=== PATIENT | male | born 1960 | race Caucasian/White ===

== ENCOUNTER 2023-11-27 22:43 | Emergency (ER) | payer BC ==
[2023-11-27 22:50] VITALS: BP 117/84; PULSE 76; RESP 16; TEMP 98.2; BMI 24.3
[2023-11-27 23:20] LABS: HEMATOCRIT 42.7 % (35.4-49); HEMOGLOBIN 14.3 G/dL (11.7-16.9); MCH 30.7 pg (25.7-33.7); MCHC 33.5 g/dl (32.0-35.9); MEAN CELL VOLUME 91.8 fl (80-96); MEAN PLT VOLUME 7.8 fl (7.5-11.1); PLATELET COUNT 267.1 10^3/uL (134-434); RBC 4.65 10^6/uL (4.00-5.60); WHITE BLOOD COUNT 10.1 10^3/uL (4.0-10.8)
[2023-11-28] MEDS ORDERED: KETOROLAC TROMETHAMINE 30 MG/1 ML VIAL ONE (00:19)
[2023-11-28] MEDS: KETOROLAC TROMETHAMINE 30 MG/1 ML VIAL IM ONE (00:19)
== END 2023-11-28 00:23 | disposition home or self-care (01) ==
LOC: FER 22:43
PROC: 3E0333Z Introduction of Anti-inflammatory into Peripheral Vein, Percutaneous Approach (ICD-10-PCS; principal; 2023-11-28)
DX: M54.32 Sciatica, left side (principal); M79.605 Pain in left leg
CPT/HCPCS: 36415; 72100-TC-FY; 82550; 82553; 85027; 99284-25